=== PATIENT | female | born 1950 | race Asian ===

== ENCOUNTER 2020-09-01 09:07 | Inpatient (IN) | payer BC, OTHER ==
[~2020-09-01] VITALS: Ht 152.4 cm; Wt 66.2 kg
[2020-09-01 09:15] VITALS: Ht 152.4 cm; Wt 66.2 kg
--- NOTE | 2020-09-01 09:18 | NUR ---
EKG IN PROGRESS.
--- NOTE | 2020-09-01 10:05 | NUR ---
PT BIB SELF WITH C/O UPPER AND LOWER LATERAL NONRADIATING SHARP L CHEST PAIN X4 DAYS. PT STATES PAIN INCREASES WITH DEEP BREATHING AND WITH ACTIVITY. PT STATES PAIN IS INTERMITTENT AND RELIEVED BY TYLENOL HOWEVER PAIN BECAME INCREASING WORSE TODAY AFTER WAKING UP. PT STATES SLEEPING ON HER RIGHT SIDE TO RELIEVE L SIDE CHEST PAIN. PT PLACED ON FULL CM, RESP E/U, LUNGS CTA, PT PLACED IN GOWN. EKG COMPLETED AND NSR NOTED. AWAITING MSE AND WILL CONTINUE TO MONITOR.
[2020-09-01 10:12] LABS: PLATELET COUNT 354 x10^3mcL (130-400); RED CELL DISTRIBUTION WIDTH 12.9 % (11.5-14.5)
[2020-09-01 10:23] LABS: CALCIUM 9.5 mg/dL (8.5-10.1); CARBON DIOXIDE 30.1 mmol/L (21-32); CHLORIDE SERUM 100 mmol/L (98-107); CREATININE SERUM 0.9 mg/dL (0.6-1.0); GLUCOSE SERUM 194 mg/dL (74-106); POTASSIUM SERUM 3.2 mmol/L (3.5-5.1); SODIUM SERUM 138 mmol/L (136-145)
[2020-09-01 10:29] LABS: ALBUMIN 3.6 g/dL (3.4-5.0); ALKALINE PHOSPHATASE 70 U/L (46-116); ALT/SGPT 47 U/L (14-59); AST/SGOT 19 U/L (15-37); BILIRUBIN TOTAL 0.3 mg/dL (0.20-1.00); TOTAL PROTEIN, SERUM 7.8 g/dL (6.4-8.2)
--- NOTE | 2020-09-01 10:45 | NUR ---
PT AMBULATED TO RESTROOM. PT C/O INCREASED L UPPER AND LOWER LATERAL CHEST PAIN DURING AMBULATION. PT PLACED BACK IN BED AND ON FULL CM
[2020-09-01] MEDS ORDERED: FORTAMET500 M1 PO (12:30)
--- NOTE | 2020-09-01 12:30 | NUR ---
DR LOAIZA AT BEDSIDE TO DISCUSS POC.
[2020-09-01] MEDS ORDERED: MICROZIDE12.5 MG PO (12:31)
[2020-09-01] MEDS ORDERED: SINGULAIR10 MG PO (12:32)
[2020-09-01] MEDS ORDERED: COZAAR50 M1 PO (12:33)
[2020-09-01] MEDS ORDERED: MICROZIDE12.5 MG (12:33)
[2020-09-01] MEDS ORDERED: ZYLOPRIM300 MG (12:33)
[2020-09-01] MEDS ORDERED: AZOR1 TAB (12:34)
[2020-09-01] MEDS ORDERED: SIMVASTATIN5 M2 (12:34)
[2020-09-01] MEDS ORDERED: PROAIR HFA8.5 GM INH (12:35)
[2020-09-01] MEDS ORDERED: GLIPIZIDE XL10 M1 (12:35)
[2020-09-01] MEDS ORDERED: ADV100/50 IH (12:36)
--- NOTE | 2020-09-01 12:45 | NUR ---
PT AMBULATED TO RESTROOM WITH A STEADY GAIT
--- NOTE | 2020-09-01 13:39 | NUR ---
PT AWAKE AND ABLE TO VERBALIZE NEEDS AND FOLLOW COMMANDS. PT ON FULL CM AND NO ACUTE DISTRESS NOTED AT THIS TIME. WILL CONT TO MONITOR.
--- NOTE | 2020-09-01 13:49 | NUR ---
CALLED TELE TO GIVE REPORT TO LULY MEIER AND WAS TOLD HE WOULD RETURN CALL TO GET REPORT.
--- NOTE | 2020-09-01 13:53 | NUR ---
PT STATED FEELING "SHAKY LIKE BLOODSUGAR WAS LOW" BLOOD SUGAR WAS CHECKED AND WAS 69. PT GIVEN ORANGE JUICE AND SANDWICH.
[2020-09-01 14:13] LABS: MAGNESIUM 1.8 mg/dL (1.8-2.4)
[2020-09-01 14:28] LABS: CHOLESTEROL/HDL RATIO 2.3
--- NOTE | 2020-09-01 14:34 | NUR ---
REPORT GIVEN TO LULY RN TO ASSUME PT CARE. PT WILL BE TRANSFERRED TO TELE ONCE PENDING COVID RAZA RESULTS COME BACK.
[2020-09-01 16:55] VITALS: BP 145/82
--- NOTE | 2020-09-01 17:00 | NUR ---
PT. RECIEVED FROM ED VIA ERVIN, ALERT AND ORIENTED*4.ADMITTED FOR CHEST PAIN.PT DENIES CHEST PAIN BUT STATED PAIN IS ON HER LEFT FLANK.SITUATED IN ROOM, CARE ASSURED.NO ACUTE SOB OR DISTRESS NOTED.NSR ON THE MONITOR.ACTIVE BOWELS.SKIN WARM AND DRY AND INTACT.VOIDS VIA BRP.VSS.AFEBRILE.PLAN OF CARE DISCUSSED WITH PT.ALL NEEDS ARE BEING MET.CALL LIGHT WITHIN PT'S REACH.
[2020-09-01 17:10] VITALS: BP 139/72
--- NOTE | 2020-09-01 19:30 | NUR ---
RECIEVED PT FROM AM RN. PT IN BED RESTING, A&OX4, S1S2 HEARD, DENIES CP. LUNG SOUNDS CLEAR ON ROOM AIR. BOWEL SOUNDS ACTIVE, ABDOMEN SOFT. PT HAS IV TO RIGHT WRIST SALINE LOCKED, FLUSHES WELL, INTACT. PT HAS NO CONCERNS AT THIS TIME. CALL LIGHT IN REACH, WILL CONTINUE TO MONITOR.
[2020-09-01 20:46] VITALS: BP 142/61
[2020-09-02 05:58] VITALS: BP 118/65
--- NOTE | 2020-09-02 06:20 | NUR ---
PT RESTED WELL THROUGHOUT THE NIGHT, PT REMAINED STABLE WITH NO EPISODES OF ACUTE DISTRESS. PTS BLOOD GLUCOSE WAS CHECKED AND COVERED PER SC. PT HAS NO CONCERNS AT THIS TIME. DENIES PAIN. IV TO RW REMAINS INTACT AND SALINE LOCKED, FLUSHES WELL. CALL LIGHT IN REACH, WILL CONTINUE TO MONITOR.
[2020-09-02 07:19] LABS: BASOPHIL % 0.2 % (0-2); PLATELET COUNT 296 x10^3mcL (130-400)
[2020-09-02 07:22] LABS: CALCIUM 9.1 mg/dL (8.5-10.1); CARBON DIOXIDE 30.1 mmol/L (21-32); CHLORIDE SERUM 103 mmol/L (98-107); CREATININE SERUM 0.9 mg/dL (0.6-1.0); GLUCOSE SERUM 134 mg/dL (74-106); POTASSIUM SERUM 3.4 mmol/L (3.5-5.1); SODIUM SERUM 140 mmol/L (136-145)
--- NOTE | 2020-09-02 07:30 | NUR ---
PT REPORT RECEIVED FROM EXTENSION ASSOCIATE RN. PT CURRENTLY SLEEPING, AROUSABLE BY VERBAL STIMULI. PT IS A/Ox4. DENIES ANY SOB BUT REPORTS PAIN IS AT 7/10 AND WOULD LIKE TO TAKE HER PAIN MEDICAITON WITH HER FOOD. SAFETY PRECAUTIONS IN PLACE. CALL LIGHT WITHIN REACH. WILL CONTINUE TO MONITOR.
--- NOTE | 2020-09-02 08:21 | NUR ---
SPOKE TO FOOD ASSEMBLER ARAEA OVER THE PHONE: -REPORTED PT K 3.4. CONT TO GIVE HYDROCHLOROTHIAZIDE. ORDER 40meq K TABLET ONCE, NOW.
[2020-09-02 08:24] VITALS: BP 146/76
--- NOTE | 2020-09-02 11:00 | NUR ---
PT CURRENTLY AWAKE, PAIN IS MANAGEABLE THIS TIME. ALL NEEDS ADDRESSSED. CALL LIGHT WITHINR EACH. WILL CONTINUE TO MONITOR.
[2020-09-02 11:37] VITALS: BP 115/61
[2020-09-02 13:57] VITALS: BP 115/61
--- NOTE | 2020-09-02 14:30 | NUR ---
PT REPORTED PAIN 04/03 AGAIN. NO SOB. GIVEN PAIN MEDICATION NORCO. ALL NEEDS ADDRESSED. SAFETY PRECAUTIONS IN PLACE. WILL CONTINUE TO MONITOR.
[2020-09-02 17:27] VITALS: BP 134/92
--- NOTE | 2020-09-02 17:45 | NUR ---
REVIED DISCHARGE ISNTRUCITONS WITH PT. OBTAINED APPROPRIATE SIGNATURES. ALL QUESTIONS ADDRESSED. TELEMONITOR REMOVED AND RETURNED TO MONITOR ROOM. WRISTBANDS REMOVED. IV DISCONTINUED, INTACT. WC DOWN PT TO LOBBY WHERE SHE WAS PICKED UP BY HER SON.
== END 2020-09-02 17:45 | disposition home or self-care (01) | DRG 313 ==
LOC: ED 09:07 → DU 12:51
PROVIDERS: Emergency Medicine; ADMIT Family Medicine; ATTEND Family Medicine
DX: R07.89 Other chest pain (principal); Z20.828 Contact with and (suspected) exposure to other viral communicable diseases; J45.909 Unspecified asthma, uncomplicated; E11.9 Type 2 diabetes mellitus without complications; M19.90 Unspecified osteoarthritis, unspecified site; E78.5 Hyperlipidemia, unspecified; I10 Essential (primary) hypertension; Z90.49 Acquired absence of other specified parts of digestive tract; Z88.2 Allergy status to sulfonamides; Z90.710 Acquired absence of both cervix and uterus
CPT/HCPCS: 82962; 83880; 85378; G0378